=== PATIENT | male | born 1960 | race African-American/Black ===

== ENCOUNTER 2023-08-26 03:30 | Emergency (ER) | payer MEDICAID ==
[~2023-08-26] VITALS: Ht 182.9 cm; Wt 75.0 kg
[2023-08-26 03:32] VITALS: BP 145/92; PULSE 100; RESP 16; TEMP 98.2; O2SAT 96
[2023-08-26] MEDS ORDERED: MAGNESIUM/ALUMINUM HYDROXIDE/SIMETHICONE 30ML UDC PO STA (03:35)
[2023-08-26 04:12] LABS: INR 1.1; PROTHROMBIN TIME 11.9 sec (9.6-11.0)
[2023-08-26 04:15] LABS: ALANINE AMINOTRANSFERASE 72 IU/L (10-49); ALBUMIN 3.6 g/dL (3.2-4.8); ASPARTATE AMINOTRANSFERASE 37 IU/L (<34); BILIRUBIN TOTAL 0.7 mg/dL (0.1-1.0); CALCIUM 8.8 mg/dL (8.7-10.4); CARBON DIOXIDE 28 mEq/L (21-32); CHLORIDE 103 mEq/L (98-107); CREATININE 1.5 mg/dL (0.6-1.3); GLUCOSE 91 mg/dL (70-105); POTASSIUM 4.3 mEq/L (3.5-5.1); PROTEIN TOTAL 6.9 g/dL (6.0-8.3); SODIUM 137 mEq/L (136-145); UREA NITROGEN BLOOD 26 mg/dL (9-23)
[2023-08-26 04:24] LABS: HEMATOCRIT. 29.9 % (42.0-52.0); HEMOGLOBIN. 9.1 g/dL (14.0-18.0); MEAN CORPUSCULAR HEMOGLOBIN 19.1 pg (28.0-32.0); MEAN CORPUSCULAR HGB CONC 30.3 g/dL (31.0-37.0); MEAN CORPUSCULAR VOLUME 62.8 fL (80.0-94.0); MEAN PLATELET VOLUME 8.8 fl (7.4-10.4); PLATELET 277 x1000/uL (130-400); RED BLOOD CELL COUNT 4.76 mill/uL (4.7-6.1); RED CELL DISTRIBUTION WIDTH 20.4 % (11.6-14.6); WHITE BLOOD COUNT 6.2 x1000/uL (4.5-11.0)
[2023-08-26 04:29] LABS: DIFFERENTIAL COMMENT 1
[2023-08-26 05:19] LABS: MICROCYTOSIS 2+; PLATELET ESTIMATE NORMAL
[2023-08-26 05:20] LABS: HYPOCHROMASIA 1+
[2023-08-26] MEDS ORDERED: MAGNESIUM/ALUMINUM HYDROXIDE/SIMETHICONE 30ML UDC PO NR (08:30)
== END 2023-08-26 09:45 | disposition left against medical advice (07) ==
LOC: ER 03:41 → EDBD 03:41 → ER 09:45
DX: R10.9 Unspecified abdominal pain (principal)
CPT/HCPCS: 36415; 70486; 74176; 76705; 80053; 85025; 99284

== ENCOUNTER 2023-12-07 15:56 | Emergency (ER) | payer MEDICAID ==
[~2023-12-07] VITALS: Ht 177.8 cm; Wt 64.0 kg
[2023-12-07 16:03] VITALS: O2SAT 96
[2023-12-07 16:25] VITALS: PULSE 73; RESP 10
[2023-12-07 17:18] LABS: BASOPHILS % 0.3 % (0.0-2.0); DIFFERENTIAL COMMENT 0; EOSINOPHILS % 0.3 % (0.0-5.0); HEMATOCRIT. 32.5 % (42.0-52.0); LYMPHOCYTES % 9.9 % (20.0-50.0); MEAN CORPUSCULAR HEMOGLOBIN 29.9 pg (28.0-32.0); MEAN CORPUSCULAR HGB CONC 33.8 g/dL (31.0-37.0); MEAN CORPUSCULAR VOLUME 88.5 fL (80.0-94.0); MEAN PLATELET VOLUME 7.5 fl (7.4-10.4); MONOCYTES % 4.6 % (2.0-8.0); NEUTROPHILS % 84.9 % (40.0-76.0); PLATELET 337 x1000/uL (130-400); RED BLOOD CELL COUNT 3.67 mill/uL (4.7-6.1); RED CELL DISTRIBUTION WIDTH 16.4 % (11.6-14.6); WHITE BLOOD COUNT 4.3 x1000/uL (4.5-11.0)
[2023-12-07 17:28] LABS: INR 1.1; PROTHROMBIN TIME 12.2 sec (9.6-11.0)
[2023-12-07 17:42] LABS: ALANINE AMINOTRANSFERASE 49 IU/L (10-49); ALBUMIN 3.1 g/dL (3.2-4.8); ASPARTATE AMINOTRANSFERASE 29 IU/L (<34); BILIRUBIN TOTAL 0.4 mg/dL (0.1-1.0); CARBON DIOXIDE 34 mEq/L (21-32); CHLORIDE 98 mEq/L (98-107); GLUCOSE 88 mg/dL (70-105); POTASSIUM 3.5 mEq/L (3.5-5.1); SODIUM 135 mEq/L (136-145); UREA NITROGEN BLOOD 18 mg/dL (9-23)
[2023-12-07 17:44] LABS: CREATININE 0.3 mg/dL (0.6-1.3)
[2023-12-07 18:15] VITALS: RESP 10
[2023-12-07] MEDS: HYDRALAZINE 20MG/ML VIAL IV ONE (19:27)
[2023-12-07 19:34] VITALS: BP 155/97; PULSE 85; RESP 15; TEMP 98.3
== END 2023-12-07 21:18 | disposition home or self-care (01) ==
LOC: ER 17:02
DX: D64.9 Anemia, unspecified (principal); E11.9 Type 2 diabetes mellitus without complications; K21.9 Gastro-esophageal reflux disease without esophagitis; I10 Essential (primary) hypertension
CPT/HCPCS: 80053; 85025; 85610; 86850; 86900; 86901; 36415; 93005; 96374; 99285; J0360; Z7610 ×3; 94002